=== PATIENT | female | born 1975 | race Caucasian/White ===

== ENCOUNTER 2017-11-11 11:57 | Emergency (ER) | payer OTHER ==
[~2017-11-11] VITALS: Ht 154.9 cm; Wt 71.7 kg
[2017-11-11 12:49] VITALS: BP 130/73; Ht 154.9 cm; Wt 71.7 kg
== END 2017-11-11 14:34 | disposition home or self-care (01) ==
LOC: ED 11:57
DX: J11.1 Influenza due to unidentified influenza virus with other respiratory manifestations (principal)